=== PATIENT | female | born 2000 | race Caucasian/White ===

== ENCOUNTER 2025-06-01 07:58 | Outpatient (REF) | payer OTHER, SELFPAY ==
[2025-06-01 13:57] LABS: Chlamydia pneumoniae PCR Not Detected (Not Detect.); Coronavirus 229E PCR Not Detected (Not Detect.); Coronavirus HKU1 PCR Not Detected (Not Detect.); Coronavirus NL63 PCR Not Detected (Not Detect.); Coronavirus OC43 PCR Not Detected (Not Detect.); RSV PCR Not Detected (Not Detect.); Rhino/Enterovirus PCR Not Detected (Not Detect.)
[2025-06-01 14:22] LABS: SARS-CoV-2 PCR Not Detected (Not Detect.)
[2025-06-01 14:23] LABS: Influenza A H1 PCR Not Detected (Not Detect.); Influenza A H1-2009 PCR Not Detected (Not Detect.); Influenza A H3 PCR Not Detected (Not Detect.)
== END 2025-06-01 07:59 | disposition home or self-care (01) ==
LOC: HO.HMGCLDS 07:58
PROVIDERS: Visit Provider Physician Assistant Medical
DX: Z01.84 Encounter for antibody response examination (principal); Z11.59 Encounter for screening for other viral diseases; Z13.89 Encounter for screening for other disorder; J02.0 Streptococcal pharyngitis; M79.10 Myalgia, unspecified site; R50.9 Fever, unspecified
CPT/HCPCS: 36415; 86308; 87070; 87147; 87633; 87880; 99212

== ENCOUNTER 2025-06-01 07:58 | Outpatient (AMB) | payer OTHER, SELFPAY ==
--- OUTSIDE RECORDS SUMMARY | 2025-06-01 08:01 | XMS_ITS | Clinical Summary ---
Author Organization [facility] Address [address] [place] [address] Phone Care Team Providers Care Patient Services Clerk Name Role Phone Domitila Henry Primary Care Provider [phone] Allergies No known active allergies Medications No known medications Active Problems No known active problems Social History Tobacco Use Types Packs/Day Years Used Date Smoking Tobacco: Never Assessed Comments Unknown Sex and Gender Information Value Date Recorded Sex Assigned at Female 11/28/2024 9:32 AM EST Legal Sex Female 8:31 AM EST Gender Identity Female 11/28/2024 9:32 AM EST Sexual Orientation Lesbian or Yates 11/28/2024 9: 34 AM EST Obstetrics History Last Filed Vital Signs Vital Sign Reading Time Taken Comments Blood Pressure 146/89 11/28/2024 8:37 AM EST Pulse 90 11/28/2024 8:37 AM EST Temperature 37.7 C (99.9 F) 11/28/2024 8:37 AM EST Respiratory Rate 16 11/28/2024 8:37 AM EST Oxygen Saturation 98% 11/28/2024 8:37 AM EST Inhaled Oxygen Concentration - - Weight 74.8 kg (165 lb) 12/09/2024 10:09 AM EST Height 147.3 cm (4' 9.99 ) 12/09/2024 10:[address] Body Mass Index 34.49 12/09/2024 10:09 AM EST Plan of Treatment Health Maintenance Due Date Last Done Comments DTaP,Tdap,and Td Vaccines (1 - Tdap) 2017 Hepatitis B Vaccines (1 of 3 - 19+ 3-dose series) 2017 Cervical Cancer Screening: P ap Smear 2019 COVID-19 Vaccine (1 - 2023-2 5 season) 2024 Depression Screening 11/03/2024 HIV Screening 11/28/2024 Hepatitis C Screening 11/28/2024 Social Influencers of Health Screening 11/28/2024 Influenza Vaccine (#1) 2025 HIB Vaccines Aged Out No longer eligi ble based on patient's age to complete this topic HPV Vaccines Aged Out No longer eligi ble based on patient's age to complete this topic Hepatitis A Vaccines Aged Out No long er eligible based on patient's age to complete this topic IPV Vaccines Aged Out No longer eligi ble based on patient's age to complete this topic MMR Vaccines Aged Out No longer eligi ble based on patient's age to complete this topic Meningococcal ACWY Vaccine Aged Out N o longer eligible based on patient's age to complete this topic Meningococcal B Vaccine Aged Out No l onger eligible based on patient's age to complete this topic Pneumococcal Vaccine: Pediat rics (0 to 5 Years) and At-Risk Patients (6 to 49 Years) Aged Out No longer eligible b ased on patient's age to complete this topic RSV Immunization Patients Un cyirl 20 months Aged Out No longer eligible b ased on patient's age to complete this topic Varicella Vaccines Aged Out No longer eligible based on patient's age to complete this topic Insurance [facility] [employer] Care Teams Patient Services Clerk Relationship Specialty Start Date End Date Domitila Henry PA [address] [place] [address] PCP - General Physician [employer] 11/28/24
--- NOTE | 2025-06-01 08:05 | AM.OFFWIN_ITS ---
Intake Vital Signs 06/01/25 08:33 Height 4 ft 10 in Weight 167 lb BMI 34.9 BP 128/74 Blood Pressure Location Lt brachial Position Sitting Pulse 109 H Pulse Source Pulse Oximeter Temp 98.8 F Temp Source Oral Pulse Oximetry (%) 100 Oxygen Delivery Method Room Air Intake Visit Reasons: [employer] Strep? Patient Tobacco Use Status: Never used Tobacco Dental Aide Required: No Is last menstrual period known: Yes Last menstrual period: 05/22/25 Post menopausal: No Patient : No Allergies No Known Allergies Allergy (Verified 06/01/25 08:37) Do you need a note to return to daycare/school/sports/work: Yes HPI HPI Comments History of Present Illness Details History of Present Illness - The patient is a 25-year-old female pr esenting with a sore throat, fever, and body aches, suspecting a recurrence of streptococcal pharyngitis. - The sore throat began a few days ago, accompanied by fever and body aches. - The patient reports nausea and pain up on swallowing, with slight ear pain. - She had a confirmed case of streptococ john pharyngitis two weeks ago, treated with amoxicillin, which she completed a week ago. - The symptoms seemed to resolve initial ly but have returned more severely. - The patient has a history of frequent streptococcal infections during high school, which had subsided until recently. - She denies CP, SOB, abd pain, n/v/d, o r sick contacts. Physical Exam General: Cooperative, healthy appearing, comfortable, no acute distress and well developed Orientation: Patient oriented x3 Limitations: No limitations Head: Normal to inspection Ears: Normal TMs. Nose: Normal external nose present Face and sinus: Normal facial exam. No sinus tenderness noted. Eyes: Appearance normal, both eyes and all related structures Neck: Oropharynx erythematous and tonsils swollen, No exudates noted. Respiratory: Normal respiratory effort and able to speak in complete sentences. Clear to auscultation bilaterally Cardiovascular: Regular rate and rhythm. Normal S1 and S2 GI: Normal to inspection. Soft to palpation and nontender Skin: No rashes or lesions noted Patient was informed and verbally consented to the use of an ambient scribe for clinic note documentation during this visit. PFSH Social History Patient Tobacco Use Status: Never used Tobacco Patient : No Female Reproductive History Menstrual Date of last menstrual period: 05/22/25 Review of Systems Const All systems reviewed & are unremarkable except as noted in HPI and below Physical Exam Vital Signs: Last Vital Signs Temp 98.8 F 06/01/25 08:33 Pulse 109 H 06/01/25 08:33 BP 128/74 06/01/25 08:33 Pulse Ox 100 06/01/25 08:33 Oxygen Delivery Method Room Air 06/01/25 08:33 BMI result Body Mass Index 34.9 Results AMB Rapid Strep AMB Rapid Strep Positive Last Edit by Tory Brown MA on 06/01/25 09:42 Results Reviewed Results Reviewed: Laboratory Last Values Strep Scn Rapid Clinic Positive 06/01/25 08:54 Assessment & Plan Assessment & Plan (1) Sore, throat, streptococcal: Code(s): J02.0 - Streptococcal pharyngitis Plan Most likely strep vs viral Rapid strep positive in the office Plan - Perform a full throat culture to confirm the presence of streptococcal infection. - Conduct a monospot test to rule out infectious mononucleosis. - will order resp panel as well - Initiate a different antibiotic regimen to address potential antibiotic resi stance or recurrence. - Drink fluids - Tylenol or motrin as needed for fever or pain - diet as tolerated - follow up with PCP Orders: Orders Throat Culture Today J02.9 - Acute pharyngitis, unspecified Monotest Today J02.9 - Acute pharyngitis, unspecified AMB Rapid Strep Screen Today Z13.9 - Encounter for screening, unspecified Resp Pathogen Panel - [facility] Today J06.9 - Acute upper respiratory infection, unsp ecified Medications: New clindamycin HCl 300 mg (2 x 150 mg) PO Q8H 60 caps 0RF 10 days Coding Level of Care Code Est Pt Level 4 (00973) Diagnoses Sore, throat, streptococcal J02.0
[2025-06-01 08:33] VITALS: BP 128/74; PULSE 109; TEMP 37.1; O2SAT 100; BMI 34.9
== END 2025-06-01 09:24 | disposition home or self-care (01) ==
PROVIDERS: Visit Provider Physician Assistant Medical
DX: J02.0 Streptococcal pharyngitis (principal); Z13.9 Encounter for screening, unspecified